=== PATIENT | male | born 1990 | race Hispanic/Latino ===

== ENCOUNTER 2022-03-19 23:53 | Emergency (ER) | payer OTHER ==
[~2022-03-19] VITALS: Ht 175.3 cm; Wt 93.0 kg
[2022-03-20] MEDS ORDERED: CARAFATE1 GM PO (01:11)
[2022-03-20] MEDS ORDERED: PROTONIX20 MG PO (01:11)
== END 2022-03-20 01:36 | disposition home or self-care (01) ==
LOC: ED 23:53
DX: K29.70 Gastritis, unspecified, without bleeding (principal)
CPT/HCPCS: 36415; 74177; 80053; 81001; 83690; 85025; 85060; 96361; 96375; 99284-25; J2270; J2405; J7030; Q9967